=== PATIENT | female | born 1960 | race Caucasian/White ===

== ENCOUNTER → 2020-02-19 | Outpatient (CLI) | payer BC ==
--- NOTE | 2020-02-19 16:16 | RAD ---
SHOULDER 2+V RIGHT DATE: 02/19/2020 12:00 AM INDICATION: Reason: SHOULDER PAIN / Spl. Instructions: / History: COMPARISON: None. FINDINGS: Bones: There is no evidence of acute fracture or dislocation. Joints: Mild degenerative changes of the acromioclavicular joint. Glenohumeral joint is congruent. The acromiohumeral distance is not narrowed. Miscellaneous: No abnormal soft tissue calcifications in the shoulder. IMPRESSION: Mild AC joint degenerative changes. Electronically signed by: João Foote MD (02/19/2020 4:13 PM) [id number]
== END ==
LOC: DXRAD 15:07
PROVIDERS: ATTEND Physician Assistant
DX: M19.011 Primary osteoarthritis, right shoulder (principal)
CPT/HCPCS: 73030

== ENCOUNTER → 2020-02-20 | Outpatient (CLI) | payer BC ==
--- NOTE | 2020-02-20 10:59 | RAD ---
CERVICAL SPINE 2-3V DATE: 02/20/2020 12:00 AM INDICATION: NECK PAIN, RT SHOULDER PAIN / Spl. Instructions: / History: COMPARISON: None. FINDINGS: The cervical spine is visualized to the level of the cervicothoracic junction on the lateral views. Bones/Alignment: No evidence of acute fracture. There is no listhesis. Normal alignment of the lateral masses of C1 on C2. Joints: Multilevel moderate degenerative disc disease. The facets are normally aligned. Soft tissue: No significant prevertebral soft tissue swelling. IMPRESSION: Mild to moderate cervical spondylosis. Electronically signed by: João Foote MD (02/20/2020 10:55 AM) [id number]
== END ==
LOC: DXRAD 09:20
PROVIDERS: ATTEND Physician Assistant
DX: M47.812 Spondylosis without myelopathy or radiculopathy, cervical region (principal); M50.30 Other cervical disc degeneration, unspecified cervical region
CPT/HCPCS: 72040

== ENCOUNTER → 2021-04-10 | Outpatient (CLI) | payer BC ==
--- NOTE | 2021-04-10 10:25 | RAD ---
XR BILATERAL HIP (WITH OR WITHOUT PELVIS) LEFT 2 VIEWS 04/10/2021 9:30 AM INDICATION: Left hip pain COMPARISON: None available. TECHNIQUE: AP view the pelvis and single view of the left hip provided. FINDINGS/ IMPRESSION: There is no acute fracture or dislocation. Joint spaces are maintained. Bone mineralization is within normal limits. Regional soft tissues are within normal limits. There is no soft tissue gas or osseou s erosion. No radiopaque foreign body. Electronically signed by: Lydia Mares MD (04/10/2021 10:23 AM) [id number]
== END ==
LOC: RAD 09:25
PROVIDERS: ATTEND Physician Assistant
DX: M25.552 Pain in left hip (principal)
CPT/HCPCS: 73502

== ENCOUNTER → 2021-04-10 | Outpatient (CLI) | payer BC ==
--- NOTE | 2021-04-12 04:46 | RAD ---
XR LUMBAR SPINE 4+V History: Reason: Chronic lower back pain / Spl. Instructions: / History: Technique: 7 views of the lumbar spine. Comparison: None. Findings: Grade 1 anterolisthesis L5 on S1, mildly increased with and extension. Normal vertebral body height. No acute fracture. Mild degenerative disc changes most prominent L4-5 and L5-S1. Large colonic stool burden. Atheromatous plaque within the aorta. Impression: 1. Multilevel lumbar spondylosis most prominent L5-S1. 2. Grade 1 anterolisthesis L5 on S1, increased with and extension. 3. Large colonic stool burden. Electronically signed by: Bro Henry DO (04/12/2021 4:44 AM) [facility]
== END ==
LOC: RAD 10:55
PROVIDERS: ATTEND Physician Assistant
DX: M47.817 Spondylosis without myelopathy or radiculopathy, lumbosacral region (principal); M43.17 Spondylolisthesis, lumbosacral region; K56.41 Fecal impaction; I70.0 Atherosclerosis of aorta; M25.552 Pain in left hip
CPT/HCPCS: 72114

== ENCOUNTER → 2021-04-29 | Outpatient (CLI) | payer BC ==
--- NOTE | 2021-05-13 15:08 | RAD ---
Bilateral digital screening 2-D and 3-D (tomosynthesis) mammogram: Reason for examination: Routine screening. Previous studies are not available for comparison. Bilateral mammograms in CC and oblique projections were obtained with 2-D imaging and 3-D tomosynthes is imaging and reviewed on the workstation. Interpretation was made with the benefit of CAD. Findings: Breast density: Category C. The breasts are heterogeneously dense, which may obscure small masses. There are no suspicious masses, malignant appearing calcifications or architectural distortion. There is a 6 mm cyst with wall calcification in the right inner upper quadrant. Impression: No evidence of malignancy. ASSESSMENT: BI-RADS 2. Benign finding. Recommendations: Routine screening mammograms. This patient's information has been entered into a reminder system for the patient to be notified wit h the results of her examination and a target date for the next mammogram. Your patient's mammogram demonstrates that she has dense breast tissue (breast density category C or D), which could hide abnormalities, and if she has other risk factors for breast cancer that have bee n identified, she might benefit from supplemental screening tests that may be suggested by you as her ordering physician. Dense breast tissue, in and of itself, is a relatively common condition. Therefo re, this information is not provided to cause undue concern, but rather to raise your awareness and t o promote discussion with your patient regarding the presence of other risk factors, in addition to d ense breast tissue. Electronically signed by: Shyann Wesley MD (05/13/2021 3:05 PM) [id number]
== END ==
LOC: MAMMO 14:50
PROVIDERS: ATTEND Family Medicine
DX: Z12.31 Encounter for screening mammogram for malignant neoplasm of breast (principal)
CPT/HCPCS: 77063; 77067